=== PATIENT | female | born 1955 | race Caucasian/White ===

== ENCOUNTER → 2017-03-21 | Outpatient (CLI) | payer BC | END | disposition home or self-care (01) | LOC: EKG 12:55 → RES 14:00 | DX: I05.1 Rheumatic mitral insufficiency (principal); I27.2 Other secondary pulmonary hypertension; I70.0 Atherosclerosis of aorta; R00.1 Bradycardia, unspecified; R94.31 Abnormal electrocardiogram [ECG] [EKG]; R05 Cough; R07.1 Chest pain on breathing | CPT/HCPCS: 71020; 93005; 93306; 94060; 94726; 94729 ==